=== PATIENT | male | born 1980 | race Caucasian/White ===

== ENCOUNTER 2016-12-22 09:04 | Emergency (ER) | payer SELFPAY ==
[~2016-12-22] VITALS: Ht 172.7 cm; Wt 77.0 kg
[2016-12-22 09:06] VITALS: BP 148/80; PULSE 97; RESP 14; TEMP 98.2; O2SAT 99
--- NOTE | 2016-12-22 09:15 | PD ---
HPI . itchy rash x 1 week Chief Complaint: Skin Problem Time Seen by Provider: 09:15 Travel History International Travel<30 days: No Contact w/Intl Traveler<30days: No Traveled to known affect area: No History of Present Illness HPI 36-year-old male here with complaints of itchy rash over most of his body for about a week. Patient says his mom told him that she thinks it may be scabies therefore he decided to come to the emergency department for further evaluation. Patient is admitting to intense itching. He denies any fever or chills. He has no other complaints. PFSH Past Medical History Depression: Yes Tetanus Vaccination: > 5 Years Influenza Vaccination: No Social History Alcohol Use: Yes (OCC) Tobacco Use: Yes (1 PPD) Substance Use: Yes (METH, DILAUDID; 1PPD) Allergies-Medications (Allergen,Severity, Reaction): Coded Allergies: No Known Allergies (Verified , 07/26/16) Reported Meds & Prescriptions Reported Meds & Active Scripts Active Permethrin Topical 5% (Permethrin) 5% Cream 1 Applic TOPICAL ONCE Review of Systems General / Constitutional: No: Fever Eyes: No: Visual changes HENT: No: Headaches Cardiovascular: No: Chest Pain or Discomfort Respiratory: No: Shortness of Breath Gastrointestinal: No: Abdominal Pain Genitourinary: No: Dysuria Musculoskeletal: No: Pain Skin: Positive Rash, Positive Itching Neurologic: No: Weakness Psychiatric: No: Depression Endocrine: No: Polydipsia Hematologic/Lymphatic: No: Easy Bruising Physical Exam Narrative GENERAL: AAO x 3, no acute distress, Well-nourished, well-developed patient. SKIN: Warm and dry. No visible rashes or bruising. Linear lesions scattered on the abdomen, bilateral arms. There also lesions on the hand. Positive burrowing present HEAD: Normocephalic and atraumatic. EYES: No scleral icterus. No injection or drainage. ENT: No nasal drainage noted. Mucous membranes pink. Airway patent. NECK: Supple, trachea midline. No JVD. CARDIOVASCULAR: Regular rate and rhythm without murmurs, gallops, or rubs. RESPIRATORY: Breath sounds equal bilaterally. No accessory muscle use. No rhonchi or rales. GASTROINTESTINAL: Visual inspection normal EXTREMITIES: No cyanosis or edema. BACK: No obvious deformity PSYCH: AAO x 3, normal affect. Data Data Last Documented VS Vital Signs Date Time Temp Pulse Resp B/P Pulse Ox O2 Delivery O2 Flow Rate FiO2 12/22/16 09:06 98.2 97 14 148/80 99 MDM Medical Decision Making Medical Screen Exam Complete: Yes Emergency Medical Condition: Yes Medical Record Reviewed: Yes Differential Diagnosis Scabies, less likely bedbugs, less likely contact dermatitis Narrative Course 36-year-old male here with complaints of itchy rash over most of his body for about a week. Patient says his mom told him that she thinks it may be scabies therefore he decided to come to the emergency department for further evaluation. Patient is admitting to intense itching. He denies any fever or chills. He has no other complaints. Patient seen and examined. He appears to have scabies. I discussed these findings with him. We have discussed cleaning personal items. I will go ahead and treat him with a course of permethrin. He will need to follow his primary care provider. Patient verbalized understanding of instructions, questions were answered, and thanked me for their care. I advised them if their condition worsens, please return to the nearest emergency room for further care. Diagnosis Primary Impression: Scabies Patient Instructions: General Instructions, Scabies (ED) Additional Instructions: Clean all of the personal belongings that we discussed. Please return to emergency department if your symptoms return or worsen. Follow up with your primary care provider. Take medications as prescribed. You can use [id number] Benadryl and calamine lotion for itching as needed. Med/Other Pt SpecificInfo: Prescription(s) given Scripts Permethrin Topical 5% 5% Cream1 Applic TOPICAL ONCE #1 TUBE Ref 0 Prov:Torri Brooks 12/22/16 Disposition: 01 DISCHARGE HOME Condition: Stable Tammy Adames December 22, 2016 09:15
[2016-12-22] MEDS ORDERED: PERM5CRE TOPICAL (09:18)
== END 2016-12-22 09:46 | disposition home or self-care (01) ==
LOC: NEPK 09:04
DX: B86 Scabies (principal); F17.210 Nicotine dependence, cigarettes, uncomplicated; F15.90 Other stimulant use, unspecified, uncomplicated
CPT/HCPCS: 99282

== ENCOUNTER 2017-05-18 09:55 | Emergency (ER) | payer SELFPAY ==
[~2017-05-18] VITALS: Ht 175.3 cm; Wt 90.0 kg
[~2017-05-18 09:55] MED LIST: PERM5CRE TOPICAL
[2017-05-18 10:00] VITALS: BP 142/84; PULSE 97; RESP 13; TEMP 98.1; O2SAT 98
[2017-05-18] MEDS ORDERED: BACT800T5 PO (11:18)
[2017-05-18] MEDS ORDERED: CEPH-460 PO (11:18)
--- NOTE | 2017-05-18 11:18 | PD ---
HPI Chief Complaint: Skin Problem Time Seen by Provider: 10:58 Travel History International Travel<30 days: No Contact w/Intl Traveler<30days: No Traveled to known affect area: No History of Present Illness HPI 46-year-old male presents to emergency department for evaluation of erythematous painful area on the posterior right thigh. Noticed it about 3 days ago. States it started as a pimple but developed a reddened area around it. He is concerned she may have gotten bit by something. Reports no fever or chills. He is up-to-date on his tetanus. He has no other symptoms to report. PFSH Past Medical History Depression: Yes Social History Alcohol Use: Yes (OCC) Tobacco Use: Yes (1 PPD) Substance Use: Yes (METH, DILAUDID; 1PPD) Allergies-Medications (Allergen,Severity, Reaction): Coded Allergies: No Known Allergies (Verified , 07/26/16) Reported Meds & Prescriptions Reported Meds & Active Scripts Active Keflex (Cephalexin) 500 Mg Capsule 500 Mg PO Q6H 5 Days Bactrim DS (Sulfamethoxazole-Trimethoprim) 800-160 Mg Tab 1 Tab PO BID Permethrin Topical 5% (Permethrin) 5% Cream 1 Applic TOPICAL ONCE Review of Systems Except as stated in HPI: all other systems reviewed are Neg Physical Exam Narrative GENERAL: Well-nourished, well-developed patient in no acute distress SKIN: Focused skin assessment warm/dry. 5 cm in diameter erythematous area of induration on the right posterior thigh. There is a very small pustule at the center of this. No fluctuation. Mild induration. HEAD: Normocephalic. EYES: No scleral icterus. No injection or drainage. NECK: Supple, trachea midline. No JVD or lymphadenopathy. CARDIOVASCULAR: Regular rate and rhythm without murmurs, gallops, or rubs. RESPIRATORY: Breath sounds equal bilaterally. No accessory muscle use. MUSCULOSKELETAL: No cyanosis, or edema. BACK: Nontender without obvious deformity. No CVA tenderness. Data Data Last Documented VS Vital Signs Date Time Temp Pulse Resp B/P (MAP) Pulse Ox O2 Delivery O2 Flow Rate FiO2 05/18/17 11:29 05/18/17 10:00 98.1 97 13 98 Orders Orders Wound Culture And Gram Stain (05/18/17 11:15) [facility] Medical Decision Making Medical Screen Exam Complete: Yes Emergency Medical Condition: Yes Medical Record Reviewed: Yes Differential Diagnosis Folliculitis versus cellulitis versus abscess Narrative Course 36-year-old male presents to emergency department for evaluation of a painful lesion on the right posterior thigh. She appears without distress. The area of the posterior thigh is most consistent with a cellulitis. There is no fluctuation. There is a very small pustule at the center that is drained using a needle aspiration. Culture sent. Patient is started on oral antibiotics and counseling care. He agrees to return immediately with any acute worsening of symptoms. Procedures Procedure Narrative INCISION AND DRAINAGE OF ABSCESS: The area was prepped and was sterilely draped. A number [-] scalpel was used to make a 20-gauge sterile needle was used to make a puncture across the area of the abscess. Cultures were obtained. Abrasion tolerated well. A dressing is placed. Diagnosis Primary Impression: Cellulitis of right thigh Referrals: Primary Care Physician Patient Instructions: Cellulitis (ED), General Instructions Additional Instructions: Warm compress to affected area Follow up with primary care provider Do not squeeze the area Return to ED with acute worsening of symptoms Med/Other Pt SpecificInfo: Prescription(s) given Scripts Cephalexin (Keflex) 500 Mg Capsule 500 MG PO Q6H for Infection for 5 Days, #20 CAP 0 Refills Prov: Alissa Morton 05/18/17 Sulfamethoxazole-Trimethoprim (Bactrim DS) 800-160 Mg Tab 1 TAB PO BID for Infection, #20 TAB 0 Refills Prov: Alissa Morton 05/18/17 Disposition: 01 DISCHARGE HOME Condition: Stable Alissa Morton May 18, 2017 11:18
== END 2017-05-18 11:31 | disposition home or self-care (01) ==
LOC: NEPD 09:55
DX: L03.115 Cellulitis of right lower limb (principal); L02.415 Cutaneous abscess of right lower limb; B95.62 Methicillin resistant Staphylococcus aureus infection as the cause of diseases classified elsewhere; F17.200 Nicotine dependence, unspecified, uncomplicated
CPT/HCPCS: 10160; 86403; 87070; 87186

== ENCOUNTER 2017-05-21 18:57 | Emergency (ER) | payer SELFPAY ==
[~2017-05-21] VITALS: Ht 175.3 cm; Wt 86.0 kg
[~2017-05-21 18:57] MED LIST changes: +BACT800T5 PO; +CEPH-460 PO
[2017-05-21 18:59] VITALS: BP 157/87; PULSE 109; RESP 18; TEMP 99.4
--- NOTE | 2017-05-21 19:14 | PD ---
Physical Exam Date Seen by Provider: May 21, 2017 Time Seen by Provider: 19:12 Narrative 36 yo male here for evaluation of leg wound. Seen here recently for this. Comes for recheck as it is not getting better. Per patient he has been compliant. Denies IVDA. Vitals are stable in triage. Awaiting bed placement. Data Data Last Documented VS Vital Signs Date Time Temp Pulse Resp B/P (MAP) Pulse Ox O2 Delivery O2 Flow Rate FiO2 05/21/17 18:59 99.4 109 18 157/87 (110) Room Air [facility] Medical Record Reviewed: Yes Supervised Visit with FRANCI: No Ramirez Holly May 21, 2017 19:14
[2017-05-21] MEDS ORDERED: LIDOCAINE HCL 1% 50 ML VIAL ONE (22:02)
[2017-05-21] MEDS ORDERED: SULFAMETHOXAZOLE-TRIMETHOPRIM DS 800-160 MG TAB PO ONE (22:30)
[2017-05-21] MEDS ORDERED: BACT800T5 PO (22:43)
--- NOTE | 2017-05-21 22:43 | PD ---
HPI Chief Complaint: Skin Problem Time Seen by Provider: 21:47 Travel History International Travel<30 days: No Contact w/Intl Traveler<30days: No Traveled to known affect area: No History of Present Illness HPI 36-year-old man presents emergent for reevaluation of right thigh abscess. He had a needle drained a couple days ago, started on antibiotics. He never filled the antibiotics. He's had more pain redness swelling and drainage since then. No fevers. No medical problems. Recently released from shelter. History Past Medical History Medical History: Denies Significant Hx Social History Alcohol Use: Yes (OCC) Tobacco Use: Yes (1 PPD) Allergies-Medications (Allergen,Severity, Reaction): Coded Allergies: No Known Allergies (Verified , 05/21/17) Reported Meds & Prescriptions Reported Meds & Active Scripts Active Bactrim DS (Sulfamethoxazole-Trimethoprim) 800-160 Mg Tab 1 Tab PO BID Keflex (Cephalexin) 500 Mg Capsule 500 Mg PO Q6H 5 Days Permethrin Topical 5% (Permethrin) 5% Cream 1 Applic TOPICAL ONCE Review of Systems Except as stated in HPI: all other systems reviewed are Neg Physical Exam Narrative GENERAL: Well-appearing 36-year-old man, no acute distress. SKIN: Warm and dry. CARDIOVASCULAR: Warm and well perfused. RESPIRATORY: Normal rate and effort. MUSCULOSKELETAL: Focused examination of the right leg reveals a large area of erythema redness on the right leg with central area of induration and fluctuance. There is minimal drainage from the previous site. NEUROLOGICAL: Awake and alert. No gross deficits. Data Data Last Documented VS Vital Signs Date Time Temp Pulse Resp B/P (MAP) Pulse Ox O2 Delivery O2 Flow Rate FiO2 05/21/17 18:59 99.4 109 18 157/87 (110) Room Air Orders Orders Lidocaine 1% Inj (50 Ml) (Xylocaine 1% I (05/21/17 22:02) Sulfamet-Trimeth Ds 800-160 Mg (Bactrim (05/21/17 22:30) Ed Discharge Order (05/21/17 22:42) MDM Medical Decision Making Medical Screen Exam Complete: Yes Emergency Medical Condition: Yes Differential Diagnosis Abscess, infection, cellulitis, other Narrative Course Medical decision-making 36-year-old male worsening saline as an abscess in his right thigh just bite needle drainage, cooperative by not filling his antibiotics. Looks well. Was I &D to the bedside by myself and medical student. Patient tolerated well. Procedures Procedure Narrative INCISION AND DRAINAGE OF ABSCESS: The area was prepped and was sterilely draped. A subcutaneous wheal of % Xylocaine 1 with a total number 5 mL was used to anesthetize the area. The area was properly anesthetized. A number 11 scalpel was used to make a 1-cm incision across the area of the abscess. Cultures were obtained. The abscess was drained an irrigated with normal saline. Patient advised to have packing removed in two days. Diagnosis Primary Impression: Abscess Additional Instructions: Take Bactrim as prescribed. Return to the emergency department for any worsening pain redness or swelling. Med/Other Pt SpecificInfo: Prescription(s) given Scripts Sulfamethoxazole-Trimethoprim (Bactrim DS) 800-160 Mg Tab 1 TAB PO BID for Infection, #20 TAB 0 Refills Prov: Christian Solis MD 05/21/17 Disposition: 01 DISCHARGE HOME Condition: Stable Christian Solis MD May 21, 2017 22:43
== END 2017-05-21 23:16 | disposition home or self-care (01) ==
LOC: NEPD 18:57
DX: L02.415 Cutaneous abscess of right lower limb (principal); F17.200 Nicotine dependence, unspecified, uncomplicated
CPT/HCPCS: 10061